=== PATIENT | male | born 1980 | race Caucasian/White ===

== ENCOUNTER 2020-11-21 10:04 | Emergency (ER) | payer OTHER ==
[~2020-11-21] VITALS: Ht 180.3 cm; Wt 113.4 kg
[2020-11-21 10:30] VITALS: BP 133/85
--- NOTE | 2020-11-21 10:30 | NUR ---
ED Nurse Note: Pt walked in from home, referred by Dr. Egan for antibody monocloneal treatment. Pt positive for COVID on 11/18/19. No respiratory distress noted. Respirations even and unlabored on room air. Vitals stable as documented with 98% O2 sat. A+Ox4, speaking in complete sentences.
[2020-11-21] MEDS ORDERED: Bamlanivimab Fact Sheet MISC ONE (10:45)
[2020-11-21] MEDS ORDERED: Bamlanivimab 700 MG in NS 275 ML IVPB SCH (10:45)
[2020-11-21] MEDS ORDERED: ZITHROMAX250 MG ORAL (10:59)
[2020-11-21] MEDS ORDERED: TYLENOL EXTRA500 MG ORAL (10:59)
[2020-11-21] MEDS ORDERED: PREDNISONE20 MG ORAL (10:59)
[2020-11-21] MEDS ORDERED: PROVENTIL HFA6.7 G1 IH (10:59)
[2020-11-21] MEDS ORDERED: Acetaminophen 500mg (ES) tab ORAL ONE (11:00)
--- NOTE | 2020-11-21 11:00 | Emergency Room Report ---
History of Present Illness General Chief Complaint: Flu Like Symptoms Source: Patient Present Illness HPI 40-year-old male with no PMHx sent by infectious disease doctor, Dr Egan for bamlaninivab infusion. Pt was diagnosed with COVID19 on November 18, 2020. 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 Endorses chills, myalgias, fatigue, loose bowel movements (nonbloody), cough, and mild shortness of breath. Denies chest pain, hemoptysis, history of blood clots, leg swelling, melena, hematochezia, hematuria, back pain, saddle anesthesia, petechial rash, recent travel or antibiotic use The patient's symptoms were gradual onset, severity was moderate, duration since 4 days. Quality: fatigue Past medical history: Denies Past surgical history: Denies Smoking: Denies Alcohol use: Denies Drug use: Denies Review of systems: CONST: ++ fevers ++ chills, No night sweats PULMONARY: ++ cough, ++ shortness of breath CARDIAC: No chest pain, No palpitations GI: No vomiting, No diarrhea , No melena_or_BRBPR : No dysuria, No hematuria, No discharge NEURO: No new_focal_weakness_or_numbness, No confusion, No vision changes 14 point Review of Systems is otherwise negative except per HPI Physical Exam: GENERAL: Awake_alert_ nontoxic, no acute distress Spo2 97% on RA -normal EYES: Extraocular muscles are intact. Conjunctivae clear. Lids without swelling ENT: External nose and ear normal_in_appearance. Oropharynx clear. Head_atraumatic, Moist_oral_mucosa NECK: No JVD. No meningismus. No thyromegaly. Supple. Trachea midline RESP: Tachypnic. Symmetric rise. No stridor. Speaks in full sentences. No subcostal retractions. No stridor, drooling, or hoarse voice CARDIAC: Tachy and regular rhytm. No_significant pedal edema. ABDOMEN: Soft. Nondistended. Nontender_No_rebound_or_guarding. MSK: Normal muscle tone, without rigidity. Extremities without asymmetric deformity or swelling. SKIN: Warm and dry. No visible cyanosis or pallor NEUROLOGIC: Alert, oriented x3. Motor_and_sensation_grossly_intact. No truncal ataxia. Gait_normal Psych: Normal mood and affect, normal judgment and insight - COORDINATION OF CARE Case was discussed with: Patient , Patient's Physician Any labs and imaging that were ordered were interpreted as part of the medical decision making: Medical Decision Making/Plan: DDx: includes COVID-19 / coronavirus infection, URI, bronchitis, viral syndrome, postnasal drip, versus less likely pneumonia, among others. Patient meets bamlanivimab criteria for FDA emergency use. He was sent by ID Dr Egan. Extensive risks, benefits, alternatives of FDA emergency use infusion were discussed. Patient verbally consents for treatment. I spoke with Dr Egan regarding patient and states pt has his number and can contact him tonight via phone or come for follow up with him in office. The patient is nontoxic and well-appearing and has no significant shortness of breath or fever . The patient exhibits no evidence of respiratory distress. Chest x-ray revealed multifocal pneumonia consistent with COVID 19. No evidence of ENT emergency, airway patent, tolerating oral liquids and solids. No stridor or difficulty breathing. The patient was instructed to follow up with their physician and instructed to return if worsens, progressively worsening shortness of breath or difficulty breathing, persistent fever, chest pains or discomfort, inability to keep medication or fluids down with or without vomiting, or any other new, worsening or concerning symptoms Based on the patients presenting signs, symptoms, exam, and risk factors (living in an area endemic for a coronavirus outbreak = [place]), the [place] has been tested POSITIVE FOR COVID 19. Patient was nontoxic with benign vital signs. Patient did not meet admission criteria and was stable for outpatient therapy. Patient was instructed to home quarantine for 14 days or until 3 days after their last fever, whichever is longer. Appropriate precautions were given. Strict return precautions given, including but limited to: Patient educated to notify a healthcare professional if they develop further symptoms that include chest pain, palpitations, si gnificant SOB, fever, or other concerning symptoms. Discussed supportive care with rest, hydration, frequent handwashing and Tylenol and Motrin [id number] as needed for pain or fevers. Discussed strict return precautions. Verbal discharge with written instructions were given for COVID- 19. Patient is instructed to follow up with their primary care provider in 12- 24 hrs, or return to the ED for worsening symptoms. Return to ED precautions were given. 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 Time is exclusive of separately billable procedures. Time includes: direct patient care, continuous monitoring and multiple patient reassessment, coordination of patient care, review of patient's medical records, medical consultation, family consultation regarding treatment decisions and documentation of patient care. Medical Decision Making Diagnostic Impression: Primary Impression: COVID-19 Additional Impressions: Multifocal pneumonia Obesity Rhythm Strip Diag. Results Rhythm Strip Time: 10:57 EP Interpretation: yes Rate: 99 Rhythm: NSR, no PVC's, no ectopy Chest X-Ray Diagnostic Results Chest X-Ray Diagnostic Results : PA Scribe Text Chest X-Ray: Views: [ 1 ] view(s) Indication: Cough Findings: Normal heart size. Mediastinum normal. Multifocal infiltrate. Impression: COVID-19, atelectasis The X-ray(s) were independently viewed and interpreted contemporaneously Electronically signed by Lexi gomes DO Reevaluation Time: 12:23 Last Vital Signs Date Time Temp Pulse Resp B/P (MAP) Pulse Ox O2 Delivery O2 Flow Rate FiO2 11/21/20 10:14 98.8 115 18 124/81 (95) 93 Room Air Status: improved Disposition: HOME, SELF-CARE Admit Decision Time: 14:00 Condition: Stable Scripts Albuterol Sulfate (PROVENTIL HFA) 6.7 Gm Hfa.aer.ad 6.7 GM IH QID for 7 Days, #6.7 GM Prov: Lexi Faith D.O. 11/21/20 Prednisone* (PREDNISONE*) 20 Mg Tablet 40 MG ORAL DAILY, #10 TAB Prov: Lexi Faith Lizzie. 11/21/20 Azithromycin* (ZITHROMAX*) 250 Mg Tablet 250 MG ORAL DAILY, #6 TAB 0 Refills Take two tables once daily for 1 day, then one tablet once daily for 4 days. Prov: Gabriel Faithnikole Samuel. 11/21/20 Acetaminophen* (TYLENOL EXTRA STRENGTH*) 500 Mg Tablet 500 MG ORAL Q8H PRN for Prn Headache/Temp > 101, #30 TAB 0 Refills Prov: Lexi Faith Lizzie. 11/21/20 Patient Instructions: Community-Acquired Pneumonia, Adult, [id number] Additional Instructions: Instructions for patient/internet designer: Follow up with your infectious disease physician in 1 day Follow-up with your doctor sooner if your condition requires a more timely clinical reevaluation. Return to the emergency department immediately if you feel that your condition is worsening or if you have any new or concerning symptoms. Review your discharge instructions and take any prescriptions given as ins tructed. [facility] PROVIDES FREE OR LOW-COST HEALTH SERVICES TO PEOPLE WHO CAN SHOW PROOF THAT THEY LIVE IN [facility]. TO FIND MORE CLINICS PARTNERED WITH [facility] TO PROVIDE SERVICE, PLEASE CALL . Your evaluation suggests that you are suffering from a viral infection producing a viral syndrome. You can sign up for testing with [facility] at the following website as discussed [email or web address] Symptoms of a viral syndrome may include fever, sore throat, headache, body aches and pains, generalized weakness and fatigue, and runny nose. You do not show signs or symptoms suggestive of a serious or life threatening illness. This illness may be caused by a number of different viruses, including Influenza A or B or COVID-19. These viruses are highly contagious and spread rapidly from person to person via coughing and sneezing of the virus or by contaminated surface contact with nasal or other respiratory secretions. These viruses cause a similar combination of signs and symptoms which are typically much more severe than the common cold. Typically they begin with the rapid onset of fever, often high (over 102), body aches, fatigue, headache, and usually upper respiratory tract infections symptoms such as cough, runny nose, and sore throat. The illness typically lasts 7-10 days, with the fever and feelings of weakness and body aches usually lasting 3-5 days. Your own immune system fights off these infections. Only rarely do secondary bacterial infections occur (such as bacterial pneumonia) and can be serious. At this time your symptoms do not appear serious, however, there are limitations to online visits and if you are not improving you may need to be evaluated by a doctor in person and that doctor may need to do additional tests. INSTRUCTIONS: Illnesses such as yours typically resolve on their own with time however you must remember to stay hydrated and drink 2-3 times your normal fluid intake, as fever and your increased metabolism in fighting the infection uses more water. Fever control is important to help you feel better and to help prevent dehydration. Acetaminophen is an excellent choice for fever control and other symptoms (as long as you are not allergic to the medication). Rest is also important in helping your body fight this infection. Over the counter cough and decongestant medications are safe (as long as you dont have uncontrolled high blood pressure) and may help the cough and congestion slightly. As these viruses are highly contagious, good hand washing habits, and covering your cough and sneeze help prevent spread. Fever can be a sign of a serious infection and it is imperative that you go directly to an Emergency Department for serious symptoms such as weakness, confusion, significant shortness of breath, abdominal pain, or severe headache. Close follow up with a physician is important if you are not improving over the next few days or you experience worsening of your symptoms. Although it is impossible to know at this point if you have COVID-19 (the Lainez virus), please quarantine yourself and anyone else that is residing with you for the longer of the following time periods: 14 days OR 3 days after the last of your symptoms has resolved CONTACT THE DOCTOR RIGHT AWAY if you develop worsening symptoms such as shortness of breath, chest pain, neck stiffness, confusion or any other new, worsening, or concerning symptoms. For emergencies contact 911 immediately. Lexi Faith D.O. Nov 21, 2020 11:00
[2020-11-21 12:30] VITALS: BP 138/74
--- NOTE | 2020-11-21 13:00 | NUR ---
ED Nurse Note: infusion finished. Vitals stable as documented. Pt denies any SOB/pain. Respirations even and unlabored on room air.
[2020-11-21 14:10] VITALS: BP 139/89
--- NOTE | 2020-11-21 14:10 | NUR ---
ER DISCHARGE NOTE: One hour after infusion finished, pt is resting in bed with stable vitals. No acute distress noted. Patient is cleared to be discharged per ERMD, pt is aox4, on room air, with stable vital signs. pt was given dc and prescription instructions, pt was able to verbalize understanding, pt id band and iv site removed without complications. pt is able to ambulate with steady gait. pt took all belongings.
--- NOTE | 2020-11-21 14:39 | Diagnostic Imaging Report ---
Procedure: XRAY Chest 1v Reason for study: Reason For Exam: COUGH Comparison films: None. FINDINGS: Radiograph is underpenetrated. Vascularity is normal. Mild interstitial prominence noted but no desiree alveolar process. Cardiac and mediastinal silhouette are within normal limits. CP angles are sharp. The bony thorax appear unremarkable. IMPRESSION: Mild bilateral interstitial prominence but no gross acute alveolar process.
== END 2020-11-21 14:10 | disposition home or self-care (01) ==
LOC: EMR 10:50
DX: U07.1 COVID-19 (principal); J12.82 Pneumonia due to coronavirus disease 2019; E66.9 Obesity, unspecified; Z68.34 Body mass index [BMI] 34.0-34.9, adult
CPT/HCPCS: 71045; 96365; 99291; J7050; Q0239